=== PATIENT | female | born 1940 | race Caucasian/White ===

== ENCOUNTER → 2016-10-07 | Outpatient (CLI) | payer OTHER ==
[~2016-10-07] MED LIST: CERTAGEN PO; FISH OIL 1,0001 CAP PO; FOSAMAX PO; MOBIC PO; OYSTER CALCIUM500 MG PO; PANTOPRAZOLE SO40 MG PO; PLAQUENIL200 MG PO; RESTASIS32 EA OP; VICODIN 5/500 T1 TAB PO; VITAMIN B-6 PO
--- NOTE | ~2016-10-07 | MY11 ---
[facility] A Service of [facility] RADIOLOGY TEXT RESULTS PATIENT: GERMAN MARI LOCATION: [facility] : 36 UNIT #: [id number] AGE: [address]: Greta Goldberg MD SEX: F ORDER DR: [id number] [facility] [address] [place], [place] [address] [id number] O MR#: [id number] Acc #: [id number] NAME: GERMAN MARI : 1940 SEX: F STUDY DATE/TIME: 10/07/2016 13:10 UNIT: [facility] ROOM: STUDY DESCRIPTION: MY Mammogram Screening Dig Michael Attending Physician: Greta Goldberg M.D. Ordering Physician: Greta Goldberg M.D. Primary Care Physician: Jose M Lopes M.D. MEDICAL IMAGING REPORT This report is preliminary unless electronic signature is present EXAM Bilateral digital screening mammogram with CAD 10/07/2016 INDICATION 76-year-old female for routine screening. No reported problems and no personal or family history breast cancer. No surgeries. TECHNIQUE CC and MLO views of the breast were obtained and reviewed with an FDA-approved CAD device. COMPARISON 09/17/2015, 09/11/2014, 07/03/2013 FINDINGS Breast parenchyma is composed of scattered fibroglandular densities. The pattern is unchanged. There is no new dominant nodule, mass, or suspicious cluster of microcalcifications. Benign calcifications are present. Asymmetric subareolar predominance in the left breast is stable. IMPRESSION 1. Benign screening mammogram. 1 year follow up recommended. Patient's over the age of 40 are entered into a reminder system with target due date for the next mammogram. BIRADS: 2 Benign findings Dictated by... Victor Hugo Guadalupe M.D. THIS IS AN ELECTRONICALLY VERIFIED REPORT [facility] A Service of [facility] & [facility] RADIOLOGY TEXT RESULTS PATIENT: GERMAN MARI LOCATION: [facility] : 36 UNIT #: [id number] AGE: [address]: Greta Goldberg MD SEX: F ORDER DR: Victor Hugo Guadalupe M.D. at 10/08/2016 5:35 PM ANJALI/carmita TD: 10/07/2016 15:48 JOB #: [id number] MEDICAL IMAGING REPORT Page 1 of 1 COPY
== END | disposition home or self-care (01) ==
LOC: CWCC 12:29
DX: Z12.31 Encounter for screening mammogram for malignant neoplasm of breast (principal)
CPT/HCPCS: G0202